=== PATIENT | male | born 1970 | race Two or more races ===

== ENCOUNTER 2019-08-19 09:54 | Emergency (ER) | payer SELFPAY ==
[~2019-08-19] VITALS: Ht 167.6 cm; Wt 93.7 kg
[~2019-08-19 09:54] MED LIST: CIPR500T4 PO; METR500T PO
[2019-08-19 10:01] VITALS: Ht 167.6 cm; Wt 93.7 kg
[2019-08-19] MEDS ORDERED: ACETAMINOPHEN 325 MG TAB PO ONE (11:00)
[2019-08-19] MEDS ORDERED: SOD CHLORIDE 0.9% 500 ML IV ONE (11:00)
[2019-08-19] MEDS ORDERED: SOD CHLORIDE 0.9% 100 ML ONE (11:53)
[2019-08-19] MEDS ORDERED: IOHEXOL 300MG/ML 150 ML BTL ONE (11:53)
[2019-08-19 12:59] VITALS: BP 128/77; PULSE 71; RESP 18
== END 2019-08-19 13:00 | disposition home or self-care (01) ==
LOC: FTE 09:54 → EDBD 09:54 → FTE 13:00
DX: K52.1 Toxic gastroenteritis and colitis (principal); T65.94XA Toxic effect of unspecified substance, undetermined, initial encounter
CPT/HCPCS: 74177; 80053; 81003; 85025; 96360; 96361; 99285; J7040; Q9967